=== PATIENT | female | born 1950 | race Caucasian/White ===

== ENCOUNTER 2017-12-15 10:51 | Outpatient (CLI) | payer MEDICARE, BC ==
[2017-12-15 11:32] LABS: #Basophils 0.1 thou/uL (0.0-0.2); #Eosinphils 0.5 thou/uL (0.0-0.7); #Lymphocytes 1.9 thou/uL (1.20-3.40); #Monocytes 0.4 thou/uL (0.11-0.59); #Neutrophils 2.7 thou/uL (1.40-6.50); %Basophils 1.3 % (0.0-1.0); %Eosinophils 8.8 % (0.0-10.0); %Monocytes 6.3 % (0.0-10.0); %Neutrophils 49.6 % (42.0-75.0); Hemoglobin 14.1 g/dL (12.0-16.0); Mean Corpuscular HGB CONC 32.6 g/dL (32.0-36.0); Mean Corpuscular Volume 88.7 fl (81.0-99.0); Mean Platelet Volume 6.4 fL (7.4-10.4); Platelet Count 247 thou/uL (130-400); RBC Distribution Width 11.9 % (11.5-14.5); Red Blood Cell (RBC) Count 4.87 mill/uL (4.20-5.40); White Blood Cell (WBC) Count 5.5 thou/uL (4.8-10.8)
[2017-12-15 12:15] LABS: Anion Gap 12 mmol/L (10-20); BUN (Urea Nitrogen) 11 mg/dL (9.8-20.1); Calc. Creatinine Clearance 0 mL/min (70-130); Calcium 9.7 mg/dL (7.8-10.44); Carbon Dioxide 26 mmol/L (23-31); Chloride 105 mmol/L (98-107); Estimated GFR-MDRD 71; Glucose 93 mg/dL (80-115); Potassium 4.1 mmol/L (3.5-5.1); Sodium 139 mmol/L (136-145)
--- NOTE | 2017-12-16 06:22 | EKG ---
Test Reason : Blood Pressure : / mmHG Vent. Rate : 064 BPM Atrial Rate : 064 BPM P-R Int : 154 ms QRS Dur : 074 ms QT Int : 412 ms P-R-T Axes : 051 035 047 degrees QTc Int : 425 ms Normal sinus rhythm Normal ECG When compared with ECG of 15-APR-2001 14:46, No significant change was found Confirmed by ANDREA MENDOZA ([id number]) on 12/16/2017 6:00:49 AM Referred By: LEIDY Confirmed By:ANDREA MENDOZA
== END 2017-12-15 10:52 | disposition home or self-care (01) ==
LOC: LABBT 10:51
PROVIDERS: ATTEND Orthopaedic Surgery
DX: Z01.818 Encounter for other preprocedural examination (principal); G57.61 Lesion of plantar nerve, right lower limb
CPT/HCPCS: 80048; 85025; 93005; 93010

== ENCOUNTER 2017-12-22 06:11 | Day surgery (SDC) | payer MEDICARE, BC ==
[2017-12-15 11:25] VITALS: BMI 22.3
--- NOTE | 2017-12-21 11:51 | HP ---
HISTORY OF PRESENT ILLNESS: The patient is a 67-year-old female with a 1 year history of pain in her right foot which developed after wearing a certain shoewear. She has pain with walking with tight s hoes. She was seen by a auto job estimator and underwent 2 injections in the webspace between the third and fourth toes with temporary relief, but continues to have pain despite conservative treatment and is i nterfering with day-to-day activities. PAST MEDICAL HISTORY: The patient otherwise is in good health. She has a history of previous cardia c ablation and history for thrombosed hemorrhoid. She has a history of hypertension. CURRENT MEDICATIONS: Include lisinopril and risedronate. ALLERGIES: She has no known allergies. FAMILY HISTORY: Otherwise unremarkable. SOCIAL HISTORY: Otherwise unremarkable. REVIEW OF SYSTEMS: Otherwise unremarkable. PHYSICAL EXAMINATION: GENERAL: Reveals a healthy female. HEENT: Unremarkable. NECK: Supple. CHEST: Clear. HEART: Regular rate and rhythm. ABDOMEN: Soft and nontender. PELVIC/RECTAL/BREAST: Exams are deferred. EXTREMITIES: Painful right foot. There is no swelling. There is point tenderness between the third and fourth metatarsal heads and pain with compression of the metatarsal heads, which reproduces her symptoms. Neurovascular exam is intact. There are palpable distal pulses. Gait is normal. IMAGING DATA: X-rays of the foot are normal. IMPRESSION: Uribe's neuroma third interspace, right foot. PLAN: Surgical excision of Uribe's neuroma, third interspace, right foot. The nature of the surger y, length of recovery, and potential complications such as infection, loss of motion, incomplete reli ef, recurrence, and need for additional treatment or repeat surgery have been discussed in detail.
[2017-12-22] MEDS ORDERED: CEFAZOLIN/Water 2 GM/20 ML SYRINGE ONE (07:10)
[2017-12-22] MEDS ORDERED: Scopolamine 1.5 mg/72 hour Patch ONE (07:10)
[2017-12-22] MEDS ORDERED: Fentanyl 100 MCG/2 ML VIAL ONE (07:14)
[2017-12-22] MEDS ORDERED: Bupivacaine PF 0.5% 30 ML VIAL ONE (07:44)
[2017-12-22] MEDS ORDERED: Metoclopramide HCl 10 MG/2 ML VIAL ONE ×2 (07:50→11:40)
--- NOTE | 2017-12-22 08:46 | OP ---
DATE OF PROCEDURE: 12/22/2017 SURGEON: Joseph Castañeda M.D. ANESTHESIA: General. PREOPERATIVE DIAGNOSIS: Uribe's neuroma third interspace, right foot. POSTOPERATIVE DIAGNOSIS: Uribe's neuroma third interspace, right foot. PROCEDURE: Excision of Uribe's neuroma, third interspace, right foot. NARRATIVE REPORT: After satisfactory anesthesia was induced in supine position, the patient was prep ped and draped in routine manner. Right leg was elevated and exsanguinated with Esmarch bandage, and the tourniquet inflated to 250 mmHg. A 3 cm incision was made in the dorsal foot in the third inter space between the third and fourth metatarsal heads, carried down to subcutaneous tissues. Bleeding points controlled with Bovie cautery. The lamina command and control systems integrator was placed between the third and fourth me tatarsal heads splitting the interspace. Using sharp and blunt dissection, the interspace was develo ped and the transverse metatarsal ligament divided. There was a large interdigital neuroma between t he third and fourth metatarsal heads. The two limbs distally were identified and then sharply cut an d dissection carried proximally. The neuroma then pulled distally and the proximal portion of the ne uroma was sharply divided and allowed to retract proximally. There appeared to be complete excision. The wound was then thoroughly irrigated and then injected and irrigated with 20 mL of 0.5% plain Ma rcaine. The skin was closed with 3-0 nylon. A sterile bulky compressive dressing was applied and th e tourniquet deflated after 18 minutes. The foot promptly pinked up. The patient was placed into a postop shoe. She was awakened, taken to recovery room in stable condition. There were no apparent i ntraoperative complications. The estimated blood loss was negligible. The patient will be discharged home in satisfactory condition. She was instructed on ice, elevation, use of crutches or walker and weightbearing as tolerated in the postop shoe. She was given a prescr iption for Ilfeld 7.5 for pain, 40 tablets. She will be rechecked in my office in approximately 2 wee ks or sooner if there are any problems prior to that time.
[2017-12-22] MEDS ORDERED: Lidocaine 1% PF 5 ML VIAL ONE (11:40)
[2017-12-22] MEDS ORDERED: ePHEDrine/0.9% NaCl/PF SYRINGE 50 mg/10 ml ONE (11:40)
[2017-12-22] MEDS ORDERED: Dexamethasone 20 MG/5 ML VIAL ONE (11:40)
[2017-12-22] MEDS ORDERED: diphenhydrAMINE 50 MG/ML VIAL ONE (11:40)
[2017-12-22] MEDS ORDERED: Ketorolac Tromethamine 30 MG/ML VIAL ONE (11:40)
[2017-12-22] MEDS ORDERED: Ondansetron HCl/PF 4 MG/2 ML Vial ONE (11:40)
[2017-12-22] MEDS ORDERED: PROPOFOL 200 MG/20 ML VIAL ONE (11:40)
== END 2017-12-22 12:15 | disposition home or self-care (01) ==
LOC: SDC 06:11
PROVIDERS: ATTEND Orthopaedic Surgery
PROC: 0YBM0ZZ Excision of Right Foot, Open Approach (ICD-10-PCS; principal; 2017-12-22)
DX: G57.61 Lesion of plantar nerve, right lower limb (principal); I10 Essential (primary) hypertension; M81.0 Age-related osteoporosis without current pathological fracture; I47.1 Supraventricular tachycardia; Z79.83 Long term (current) use of bisphosphonates; Z79.899 Other long term (current) drug therapy
CPT/HCPCS: 28080; 97139; G8978; G8979; G8980; J0131; J1100; J1200; J1885; J2001; J2405; J2704; J2765; J3010; S0020

== ENCOUNTER 2018-07-05 13:44 | Outpatient (CLI) | payer MEDICARE, BC ==
--- NOTE | 2018-07-05 15:41 | ULT ---
THYROID ULTRASOUND: Comparison: 11-06-14 History: Thyroid nodule. Technique: Multiplanar grayscale and color doppler images were obtained in a thyroid ultrasound. FINDINGS: There are solid nodules in both thyroid lobes. The largest nodule is seen in the right lobe and is is oechoic, well circumscribed, and wider than tall. This has a similar appearance compared to the prior examination and measures 2.1 cm in greatest dimension. No suspicious calcifications are seen in the thyroid nodules. The thyroid lobes measure 4.5 and 3.8 cm in length on the right and left, respectively. IMPRESSION: Multinodular thyroid. The largest nodule is TIRADS category 3 lesion. This lesion should be followed up a 1, 3, and 5 years. This lesion has been followed for three years and a repeat follow up examinat ion in two more years should be performed to ensure stability for 5 years. POS: TPC
== END 2018-07-05 13:45 | disposition home or self-care (01) ==
LOC: BICULT 13:44
PROVIDERS: ATTEND Family Medicine
DX: Z12.31 Encounter for screening mammogram for malignant neoplasm of breast (principal); E04.1 Nontoxic single thyroid nodule
CPT/HCPCS: 76536; 77063; 77067

== ENCOUNTER 2019-06-16 09:41 | Outpatient (CLI) | payer MEDICARE, BC ==
--- NOTE | 2019-06-16 11:13 | ULT ---
US Thyroid STANDARD History: E04.2 multinodular goiter Comparison: Thyroid ultrasound 2018 Findings: Real-time grayscale and color evaluation of the thyroid was performed. Similar appearance of the bilateral thyroid nodules without significant interval growth. Isthmus siobhan ures 2 mm in AP dimension. Right lobe measures 4.5 x 2.1 x 1.6 cm and the left lobe measures 3.8 x 1.5 x 0.9 cm. Impression: No significant change in the bilateral thyroid nodules.
--- NOTE | 2019-06-16 11:43 | BD ---
DEXA BONE DENSITY STUDY: Date: 06/16/19 HISTORY: Age-related osteoporosis without current pathologic fracture. COMPARISON: None. FINDINGS: Lumbar Spine: BMD (g/cm2) L1 1.068 T-Score: 0.7 Z-Score: 2.6 L2 1.139 T-Score: 1.0 Z-Score: 3.1 L3 1.202 T-Score: 1.1 Z-Score: 3.2 L4 1.064 T-Score: 0.0 Z-Score: 2.3 L1-L4 1.119 T-Score: 0.7 Z-Score: 2.7 Left Femoral Neck: 0.535 T-Score: -2.8 Z-Score: -1.0 Total Femur: 0.827 T-Score: -0.9 Z-Score: 0.6 WHO Classification: Osteoporosis. IMPRESSION: Osteoporosis with elevated fracture risk. POS: RUFUS
== END 2019-06-16 09:42 | disposition home or self-care (01) ==
LOC: BICMAMMO 09:41
PROVIDERS: ATTEND Family Medicine
DX: M81.0 Age-related osteoporosis without current pathological fracture (principal); E04.2 Nontoxic multinodular goiter
CPT/HCPCS: 76536; 77080

== ENCOUNTER 2019-07-10 07:52 | Outpatient (CLI) | payer MEDICARE, BC ==
--- NOTE | 2019-07-10 09:06 | MMO ---
Bilateral MAMMO Bilat Screen DDI+NACNY. CLINICAL HISTORY: Patient is 68 years old and is seen for screening. The patient has no family history of breast cancer. The patient has no personal history of cancer. The patient has a history of left Excisional Biopsy - benign. VIEWS: The views performed were: bilateral craniocaudal with tomosynthesis and bilateral mediolateral oblique with tomosynthesis. FILMS COMPARED: The present examination has been compared to prior imaging studies performed at [facility] on 09/18/2015 and 07/05/2018, and at [facility] on 10/21/2009. This study has been interpreted with the assistance of computer-aided detection. MAMMOGRAM FINDINGS: There are scattered fibroglandular densities. Benign calcifications are noted bilaterally. There are no suspicious masses, suspicious calcifications, or new areas of architectural distortion. IMPRESSION: THERE IS NO MAMMOGRAPHIC EVIDENCE OF MALIGNANCY. A ROUTINE FOLLOW-UP MAMMOGRAM IN 1 YEAR IS RECOMMENDED. THE RESULTS OF THIS EXAM WERE SENT TO THE PATIENT. ACR BI-RADS Category 2 - Benign finding MAMMOGRAPHY NOTE: 1. A negative mammogram report should not delay a biopsy if a dominant of clinically suspicious mass is present. 2. Approximately 10% to 15% of breast cancers are not detected by mammography. 3. Adenosis and dense breasts may obscure an underlying neoplasm. Reported by: RASHARD MARIA MD Electonically Signed: [id number]
== END 2019-07-10 07:53 | disposition home or self-care (01) ==
LOC: BICMAMMO 07:52
PROVIDERS: ATTEND Family Medicine
DX: Z12.31 Encounter for screening mammogram for malignant neoplasm of breast (principal); Z91.89 Other specified personal risk factors, not elsewhere classified
CPT/HCPCS: 77063; 77067

== ENCOUNTER 2020-01-15 19:44 | Observation (INO) | payer MEDICARE, BC ==
[~2020-01-15 19:44] MED LIST: Iopamidol-370 76% 500 ML 1 ML ONE
[2020-01-15 20:35] LABS: #Basophils 0.1 thou/uL (0.0-0.2); #Eosinphils 0.2 thou/uL (0.0-0.7); #Lymphocytes 1.5 thou/uL (1.20-3.40); #Monocytes 0.4 thou/uL (0.11-0.59); #Neutrophils 4.5 thou/uL (1.40-6.50); %Basophils 0.9 % (0.0-1.0); %Eosinophils 3.3 % (0.0-10.0); %Monocytes 5.3 % (0.0-10.0); %Neutrophils 67.4 % (42.0-75.0); Hemoglobin 12.4 g/dL (12.0-16.0); Mean Corpuscular HGB CONC 33.5 g/dL (32.0-36.0); Mean Corpuscular Volume 89.7 fL (78.0-98.0); Platelet Count 203 thou/uL (130-400); RBC Distribution Width 11.5 % (11.5-14.5); Red Blood Cell (RBC) Count 4.13 mill/uL (4.20-5.40); White Blood Cell (WBC) Count 6.7 thou/uL (4.8-10.8)
[2020-01-15 20:44] LABS: Bilirubin Negative (Negative); Blood, Urine Negative (Negative); Clarity Clear (Clear); Glucose, Urine (Dipstick) Normal (Negative); Leukocyte 75 Leu/uL (Negative); Nitrite Negative (Negative); Protein, Urine (Dipstick) Negative (Neg-Trace); RBC/HPF 0-3 HPF (0-3); Squamous Epithelial None Seen HPF (0-3); Urobilinogen Normal mg/dL (Less than 2)
[2020-01-15 20:45] LABS: Bacteria/HPF 1+ HPF (None Seen)
--- NOTE | 2020-01-15 20:47 | RAD ---
CHEST ONE VIEW: History: Malaise, dizziness. Comparison: None. FINDINGS: No consolidation is evident. Heart size is within normal limits. No pleural effusion is evident. No p neumothorax is demonstrated. NO acute osseous abnormality is noted. IMPRESSION: No definite acute cardiopulmonary abnormality. POS: BH
[2020-01-15 20:55] LABS: ALT (SGPT) 12 U/L (8-55); AST (SGOT) 12 U/L (5-34); Alkaline Phosphatase 50 U/L (40-110); Anion Gap 12 mmol/L (10-20); BUN (Urea Nitrogen) 13 mg/dL (9.8-20.1); Bilirubin, Total 0.3 mg/dL (0.2-1.2); CK (CPK) 82 U/L (29-168); Calc. Creatinine Clearance 0 mL/min (70-130); Calcium 8.6 mg/dL (7.8-10.44); Carbon Dioxide 20 mmol/L (23-31); Chloride 106 mmol/L (98-107); Estimated GFR-MDRD 73; Globulin 2.5 g/dL (2.4-3.5); Glucose 116 mg/dL (80-115); Potassium 3.3 mmol/L (3.5-5.1); Protein, Total 6.5 g/dL (6.0-8.3); Sodium 135 mmol/L (136-145)
[2020-01-15] MEDS ORDERED: Meclizine HCl 25 MG TAB ONE (21:33)
[2020-01-15 23:43] LABS: Magnesium 1.9 mg/dL (1.6-2.6)
[2020-01-15 23:47] LABS: Phosphorus 1.7 mg/dL (2.3-4.7)
[2020-01-15] MEDS ORDERED: Aspirin Chewable 81 MG TAB ONE (23:50)
[2020-01-15] MEDS ORDERED: cefTRIAXone\\ROCEPHIN 1 GM VIAL ONE (23:50)
[2020-01-15] MEDS ORDERED: Potassium Phosphate 15 MMOL in Sodium Chloride 0.9% 250 ML 250 ML IVPB SCH (23:59)
[2020-01-16] MEDS ORDERED: Ondansetron PF 4 MG/2 ML Vial IVP PRN (01:50)
[2020-01-16] MEDS ORDERED: Acetaminophen 325 MG TAB PO PRN (01:50)
[2020-01-16] MEDS ORDERED: Ondansetron ODT 4 MG TAB SL PRN (01:50)
[2020-01-16] MEDS ORDERED: hydrALAZINE 20 MG/ML VIAL SLOW IVP PRN (03:15)
[2020-01-16] MEDS ORDERED: Senokot S 8.6-50 MG TAB PO PRN (03:18)
[2020-01-16] MEDS ORDERED: Calcium Carbonate 500 MG ChewTAB PO PRN (03:18)
[2020-01-16 03:33] VITALS: BMI 22.8
[2020-01-16] MEDS ORDERED: Meclizine HCl 25 MG TAB PO PRN (04:23)
--- NOTE | 2020-01-16 05:24 | HP ---
CHIEF COMPLAINT: Dizziness. HISTORY OF PRESENT ILLNESS: The patient is a 69-year-old female, followed by Dr. Blancas with hypertension, presented to the emergency room with above complaints. Around 7 p.m., the patient had sudden onset of dizziness along with vertigo. She felt generally weak and had spinning sensation. It lasted until she presented to the emergency room. She was unable to ambulate or maintain her balance due to dizziness. The dizziness was worse on movement, especially standing. She denies any weakness or numbness of any of her extremities. No headache, syncope, chest pain, or palpitations reported. The patient has a history of chronic tinnitus, which is recently getting worse. PAST MEDICAL HISTORY: 1. Hypertension. 2. Osteoporosis. 3. Chronic right foot numbness due to neuropathy. 4. History of hemorrhoids. 5. History of tachyarrhythmia, status post ablation. 6. Diverticulosis. PAST SURGICAL HISTORY: 1. Cardiac ablation. 2. Surgery for hemorrhoids. 3. Colonoscopy. ALLERGIES: THE PATIENT DENIES ANY DRUG ALLERGIES. CURRENT HOME MEDICATIONS: The patient is on, 1. Lisinopril 10 mg daily. 2. Alendronate 70 mg every weekly. FAMILY HISTORY: Positive for heart disease. CODE STATUS: Full code. The patient makes her own decision with the help of her spouse, Js Hernandez. REVIEW OF SYSTEMS: All other review of systems was reviewed and was found negative. PHYSICAL EXAMINATION: VITAL SIGNS: In the emergency room, temperature 98.2, pulse rate of 96, respiration of 19, blood pressure of 156/81, O2 saturation 99% on room air. GENERAL: A 69-year-old female in no apparent distress. Dizziness has significantly improved. HEENT: Head, atraumatic and normocephalic. Sclerae are anicteric. Moist mucous membranes. No oral lesion. NECK: Supple. No JVD appreciated. No carotid bruit. LUNGS: Clear to auscultation bilaterally. No wheezing, rales, or rhonchi. HEART: S1 and S2 present. Regular rate and rhythm. No rubs or gallops. ABDOMEN: Soft, nontender. Bowel sounds present. No rebound or guarding. No costovertebral angle tenderness. EXTREMITIES: No edema or calf tenderness. NEUROLOGIC: Grossly nonfocal. Moves all 4 extremities. Power was 5/5 in all extremities. Vodhwa-tu-nffr and ewzl-vs-snsc tests were normal. Reflexes were equivocal. PSYCHIATRIC: Alert, awake, and oriented x3. SKIN: Warm and dry. LYMPH NODES: No palpable lymph nodes in the neck. LABORATORY FINDINGS: CBC showed WBC 6.7 with hemoglobin 12.4, hematocrit 37, and platelet count of 203. Chemistry showed sodium 135, potassium 3.3, chloride 106, bicarb 20, BUN 13, creatinine 0.78, phosphorus 1.7, magnesium 1.9. CT scan of the brain by my review was negative for acute findings. CT angiogram of the head and neck has been done, report pending at this time. Chest x-ray by my review was negative for acute findings. EKG by my review showed sinus rhythm. IMPRESSION: 1. Dizziness/vertigo, rule out posterior cerebrovascular accident. 2. Hypertension. 3. Electrolyte abnormality. The patient has hyponatremia, hypokalemia, and hypophosphatemia. 4. Osteoporosis. 5. Suspected urinary tract infection. 6. History of supraventricular tachycardia, status post ablation in 2000. PLAN: The patient will be monitored in the stroke unit. We will consult Physical Therapy. We will start low-dose aspirin along with statins. Fasting lipid profile will be obtained. Neurology consultation. We will obtain MRI of the brain and echocardiogram. We will replace electrolytes and recheck labs in a.m. Fall precaution. Stroke education. Gentle IV hydration for now. Check orthostatic vitals. Telemetry monitoring. The patient understands the above plan of care. Job ID: [id number]
[2020-01-16] MEDS: Sodium Chloride 0.9% 1,000 ML IV SCH ×2 (06:15→22:34)
[2020-01-16 07:29] LABS: Albumin 4.3 g/dL (3.4-4.8); Anion Gap 12 mmol/L (10-20); BUN (Urea Nitrogen) 11 mg/dL (9.8-20.1); BUN/Creatinine Ratio 15.28; Calc. Creatinine Clearance 69 mL/min (70-130); Calcium 8.8 mg/dL (7.8-10.44); Carbon Dioxide 24 mmol/L (23-31); Cardiac Risk 2.3 (Less than 4.5); Chloride 110 mmol/L (98-107); Cholesterol 201 mg/dl (< 200 Desired); Estimated GFR-MDRD 80; Glucose 96 mg/dL (80-115); HDL Cholesterol 88 mg/dL (>60 Neg Risk); LDL Cholesterol, Calculated 96 mg/dL; Phosphorus 4.5 mg/dL (2.3-4.7); Potassium 4.1 mmol/L (3.5-5.1); Sodium 142 mmol/L (136-145); Triglycerides 85 mg/dL (Less than 150)
[2020-01-16] MEDS: Aspirin 81 mg Enteric Coated Tablet PO SCH (08:43)
[2020-01-16] MEDS: Famotidine 20 MG TAB PO SCH ×2 (08:43→22:18)
[2020-01-16] MEDS: Cefdinir 300 MG CAP PO SCH ×2 (08:43→22:15)
[2020-01-16] MEDS: Heparin 5,000 UNITS/ML VIAL SC SCH ×2 (08:44→22:33)
--- NOTE | 2020-01-16 08:48 | CT ---
NONCONTRAST CT OF THE BRAIN: INDICATION: A 69-year-old female with a history of weakness and dizziness. COMPARISON: None. FINDINGS: There is mild chronic small-vessel white matter ischemic change. There is a remote lacunar infarct v ersus prominent perivascular space involving the inferior aspect of the left globus pallidus. The se ptum pellucidum and third ventricle are midline. No hydrocephalus is evident. No intracranial hemor rhage is noted. There is mild mucosal thickening within the sphenoid sinus and ethmoid air cells. M astoid air cells are clear. IMPRESSION: 1. No acute intracranial abnormality. 2. Mild chronic small-vessel white matter ischemic change. 3. Mild paranasal disease. POS: BH
--- NOTE | 2020-01-16 12:16 | CT ---
CTA OF THE HEAD AND NECK UTILIZING IV CONTRAST AND 3D REFORMATTED IMAGING: INDICATION: A 69-year-old female with weakness and dizziness. COMPARISON: CT of the brain without contrast dated 01/15/2020. FINDINGS: No hemodynamically significant stenosis, occlusion, or aneurysmal formation is demonstrated. The lef t vertebral artery is dominant. There is a origin to the right OYSTER FISHERMAN. No abnormal enhancement i s demonstrated within the brain. There is mild paranasal sinus disease. Thyroid nodules are present within the thyroid gland and are better assessed on a thyroid ultrasound dated 06/16/2019. No enlar ged lymph nodes are evident. No definite acute osseous abnormality is demonstrated. IMPRESSION: No hemodynamically significant stenosis, occlusion, or aneurysmal formation demonstrated. POS: BH
--- NOTE | 2020-01-16 13:17 | CON ---
DATE OF CONSULTATION: 01/16/2020 REASON FOR CONSULTATION: Dizziness, rule out posterior circulation TIA. HISTORY OF PRESENT ILLNESS: Ms. Hernandez is a 69-year-old female with history significant for hypertension, now presented to with acute onset dizziness. According to the patient, at around 7 p.m., she had sudden onset of dizziness with vertigo. She also felt extremely weak with a feeling of room spinning in front of her eyes. She was unable to ambulate or maintain her balance, so it was decided to bring her to the emergency room for further evaluation. The patient denies any focal weakness, focal paresthesias, nausea, vomiting, headache, chest pain, or palpitation, but she does have history of chronic tinnitus. REVIEW OF SYSTEMS: All other systems were reviewed and were found negative. PAST MEDICAL HISTORY: Hypertension; hemorrhoids; tachyarrhythmia, status post ablation; diverticulitis; and osteoporosis. PAST SURGICAL HISTORY: Cardiac ablation, surgery for hemorrhoids, and colonoscopy. ALLERGIES: NO KNOWN DRUG ALLERGIES. HOME MEDICATIONS: Lisinopril 10 mg daily and alendronate 70 mg weekly. FAMILY HISTORY: Family history is significant for coronary artery disease. ALLERGIES: NO KNOWN DRUG ALLERGIES. PHYSICAL EXAMINATION: VITAL SIGNS: Blood pressure 160/80, pulse 88, and respiratory rate 18. GENERAL: A 69-year-old female, in no acute distress. HEENT: Normocephalic and atraumatic. NECK: Supple. LUNGS: Clear. HEART: Regular rate and rhythm. ABDOMEN: Soft. EXTREMITIES: No clubbing or edema. NEUROLOGIC: Mental status; the patient is alert and oriented to person, place, and time. Speech clear. Motor, muscle tone and bulk are normal. Moving all four extremities equally and symmetrically. Cranial nerves 2 through 12 intact. Sensory intact. Cerebellar, afnlzw-ic-lrei testing intact. Reflexes 2+ bilaterally. Gait within normal limits. DIAGNOSTIC STUDIES: Data reviewed. I reviewed the labs, which were essentially unremarkable. I also reviewed the CT scan, which was negative. CT angiogram of the head and neck did not reveal any acute intracranial stenosis. EKG showed normal sinus rhythm. ASSESSMENT AND PLAN: Ms. Hafsa Hernandez is consulted for an acute onset dizziness/vertigo to rule out posterior circulation transient ischemic attack versus stroke. She does have risk factors for stroke. Recommend MRI of brain to rule out acute intracranial pathology. Recommend echocardiogram to rule out cardioembolic source. Neuro checks every 4 hours. Continue aspirin and statin for secondary stroke prevention. Neuro checks every 4 hours. Continue home medications. PT/OT/speech. Continue medical management per primary team. We will continue to follow. Thank you for the consult. Job ID: [id number] MTDD
--- NOTE | 2020-01-16 13:41 | MRI ---
MRI OF THE BRAIN WITHOUT CONTRAST: 01/16/20 HISTORY: Syncope with generalized weakness. FINDINGS: Correlation is made with the previous day's CT scan. No restricted diffusion is seen. Multiple foci of T2 prolongation is seen in the periventricular whi te matter consistent with chronic small vessel ischemic disease. An old lacunar infarct versus promin ent prevascular space is seen in the left basal ganglia. No evidence of acute infarct, hemorrhage, mi dline shift or abnormal extra-axial fluid collections are seen. The ventricular size is appropriate a nd the basilar cisterns patent. There is mucosal disease in the paranasal sinuses. IMPRESSION: 1. No evidence of acute intracranial process. 2. Chronic small vessel ischemic disease. POS: LINA
--- NOTE | 2020-01-16 19:04 | PDOC.EVN ---
Event Note - Event Note Event Note: 1500: Patient seen and examined at this time. Awaiting ECHO and CTA results currently. Updated patient on other test results. Patient examination completed , only complaint of some slight dizziness when watching tv. Neurology following along with case and awaiting results.
[2020-01-16] MEDS ORDERED: Atorvastatin Calcium 40 MG TAB PO SCH (21:00)
[2020-01-16] MEDS: Acetaminophen 325 MG TAB PO PRN (22:13)
[2020-01-17 05:12] LABS: #Eosinphils 0.4 thou/uL (0.0-0.7); #Lymphocytes 1.9 thou/uL (1.20-3.40); #Monocytes 0.3 thou/uL (0.11-0.59); #Neutrophils 1.6 thou/uL (1.40-6.50); %Basophils 0.9 % (0.0-1.0); %Eosinophils 10.1 % (0.0-10.0); %Lymphocytes 44.8 % (21.0-51.0); %Monocytes 6.6 % (0.0-10.0); %Neutrophils 37.5 % (42.0-75.0); Hemoglobin 12.2 g/dL (12.0-16.0); Mean Corpuscular HGB CONC 33.9 g/dL (32.0-36.0); Mean Corpuscular Volume 91.3 fL (78.0-98.0); Platelet Count 178 thou/uL (130-400); RBC Distribution Width 11.8 % (11.5-14.5); Red Blood Cell (RBC) Count 3.94 mill/uL (4.20-5.40); White Blood Cell (WBC) Count 4.2 thou/uL (4.8-10.8)
[2020-01-17] MEDS: Acetaminophen 325 MG TAB PO PRN (06:11)
[2020-01-17 06:21] LABS: Albumin 3.6 g/dL (3.4-4.8); Anion Gap 9 mmol/L (10-20); BUN (Urea Nitrogen) 11 mg/dL (9.8-20.1); BUN/Creatinine Ratio 15.49; Calc. Creatinine Clearance 70 mL/min (70-130); Calcium 8.1 mg/dL (7.8-10.44); Carbon Dioxide 23 mmol/L (23-31); Chloride 111 mmol/L (98-107); Estimated GFR-MDRD 81; Glucose 92 mg/dL (80-115); Phosphorus 3.2 mg/dL (2.3-4.7); Potassium 3.7 mmol/L (3.5-5.1); Sodium 139 mmol/L (136-145)
[2020-01-17] MEDS: Cefdinir 300 MG CAP PO SCH (08:59)
[2020-01-17] MEDS: Heparin 5,000 UNITS/ML VIAL SC SCH (08:59)
[2020-01-17] MEDS: Famotidine 20 MG TAB PO SCH (08:59)
[2020-01-17] MEDS: Aspirin 81 mg Enteric Coated Tablet PO SCH (08:59)
[2020-01-17 11:50] VITALS: BP 143/67; TEMP 98.3
--- NOTE | 2020-01-17 13:01 | PDOC.HOSPP ---
- Subjective Encounter Date: 01/17/20 Encounter Time: 12:58 Subjective: Ms. Hernandez was seen today in follow-up of TIA. She says the dizziness and ataxia has completely resolved. She does not have any enw complaints. - Objective Vital Signs & Weight: Vital Signs (12 hours) Temp Pulse Resp BP BP Pulse Ox 01/17/20 11:49 98.3 F 69 16 143/67 H 98 01/17/20 08:56 98.2 F 69 14 145/70 H 97 01/17/20 06:32 99 01/17/20 03:28 97.9 F 64 18 125/71 99 Weight Weight 133 lb 6.4 oz I&O: 01/16/20 01/17/20 01/18/20 06:59 06:59 06:59 Intake Total 435 1240 300 Balance 435 1240 300 Result Diagrams: 01/17/20 05:00 01/17/20 05:00 Hospitalist ROS - Medication Medications: Active Medications Generic Name Dose Route Start Last Admin Trade Name Freq PRN Reason Stop Dose Admin Acetaminophen 650 mg 01/16/20 21:35 01/17/20 06:11 Tylenol PO 650 mg Q4H PRN Administration Headache/Fever or Pain Aspirin 81 mg 01/16/20 09:00 01/17/20 08:59 Ecotrin PO 81 mg DAILY JULIANNE Administration Atorvastatin Calcium 40 mg 01/16/20 21:00 01/16/20 22:16 Lipitor PO 40 mg HS JULIANNE Administration Cefdinir 300 mg 01/16/20 09:00 01/17/20 08:59 Omnicef PO 300 mg BID JULIANNE Administration Famotidine 20 mg 01/16/20 09:00 01/17/20 08:59 Pepcid PO 20 mg BID JULIANNE Administration Heparin Sodium (Porcine) 5,000 units 01/16/20 09:00 01/17/20 08:59 Heparin SC 5,000 units Q12HR JULIANNE Administration - Exam Eye: PERRL Heart: RRR, no murmur, no gallops, no rubs, normal peripheral pulses Respiratory: CTAB, no wheezes, no rales Gastrointestinal: soft, non-tender, non-distended, normal bowel sounds, no palpable masses, no hepatomegaly Extremities: no cyanosis, no edema Hosp A/P (1) TIA (transient ischemic attack) Code(s): G45.9 - TRANSIENT CEREBRAL ISCHEMIC ATTACK, UNSPECIFIED Status: Acute (2) Hypertension Code(s): I10 - ESSENTIAL (PRIMARY) HYPERTENSION Status: Chronic (3) Dyslipidemia Code(s): E78.5 - HYPERLIPIDEMIA, UNSPECIFIED Status: Chronic - Plan * TIA- MRI was negative for CVA * HTN- blood pressure is stable * Dyslipidemia- LDL is mildly elevated- will continue with Lipitor * All questions answered and Anticipate discharge home today
--- NOTE | 2020-01-17 15:29 | PDOC.HOSPP ---
- Subjective Encounter Date: 01/17/20 Subjective: NEUROLOGY PROGRESS NOTE No acute events overnight. Patient stable and dizziness resolved. - Objective Vital Signs & Weight: Vital Signs (12 hours) Temp Pulse Resp BP BP Pulse Ox 01/17/20 11:49 98.3 F 69 16 143/67 H 98 01/17/20 08:56 98.2 F 69 14 145/70 H 97 01/17/20 06:32 99 Weight Weight 133 lb 6.4 oz I&O: 01/16/20 01/17/20 01/18/20 06:59 06:59 06:59 Intake Total 435 1240 598 Balance 435 1240 598 Result Diagrams: 01/17/20 05:00 01/17/20 05:00 Radiology Reviewed by me: Yes EKG Reviewed by me: Yes Hospitalist ROS - Review of Systems Constitutional: denies: fever, chills, sweats, weakness, malaise, other ENT: denies: ear pain, ear discharge, nose pain, nose discharge, nose congestion , mouth pain, mouth swelling, throat pain, throat swelling, other Cardiovascular: reports: light headedness Gastrointestinal: denies: nausea, vomiting, abdominal pain, diarrhea, constipation, melena, hematochezia, other Genitourinary: denies: dysuria, frequency, incontinence, hematuria, retention, other Musculoskeletal: denies: neck pain, shoulder pain, arm pain, back pain, hand pain, leg pain, foot pain, other Neurological: denies: weakness, numbness, incoordination, change in speech, confusion, seizures, other - Medication Medications: Active Medications Generic Name Dose Route Start Last Admin Trade Name Marcelo PRN Reason Stop Dose Admin Acetaminophen 650 mg 01/16/20 21:35 01/17/20 06:11 Tylenol PO 650 mg Q4H PRN Administration Headache/Fever or Pain Aspirin 81 mg 01/16/20 09:00 01/17/20 08:59 Ecotrin PO 81 mg DAILY JULIANNE Administration Atorvastatin Calcium 40 mg 01/16/20 21:00 01/16/20 22:16 Lipitor PO 40 mg HS JULIANNE Administration Cefdinir 300 mg 01/16/20 09:00 01/17/20 08:59 Omnicef PO 300 mg BID JULIANNE Administration Famotidine 20 mg 01/16/20 09:00 01/17/20 08:59 Pepcid PO 20 mg BID JULIANNE Administration Heparin Sodium (Porcine) 5,000 units 01/16/20 09:00 01/17/20 08:59 Heparin SC 5,000 units Q12HR JULIANNE Administration - Exam General Appearance: awake alert Eye: PERRL, anicteric sclera ENT: normocephalic atraumatic, no oropharyngeal lesions, moist mucosa Neck: supple Heart: RRR Respiratory: CTAB Gastrointestinal: soft, non-tender Extremities: no cyanosis, no clubbing, no edema Skin: normal turgor, no lesions, no rashes Neurological: cranial nerve grossly intact, normal sensation to touch, no weakness, no focal deficits Musculoskeletal: normal tone, normal strength, no muscle wasting Psychiatric: normal affect, normal behavior, A&O x 3, oriented to person, oriented to place, oriented to time Hosp A/P (1) TIA (transient ischemic attack) Code(s): G45.9 - TRANSIENT CEREBRAL ISCHEMIC ATTACK, UNSPECIFIED Status: Acute (2) Dyslipidemia Code(s): E78.5 - HYPERLIPIDEMIA, UNSPECIFIED Status: Chronic (3) Hypertension Code(s): I10 - ESSENTIAL (PRIMARY) HYPERTENSION Status: Chronic - Plan 69 year old with TIA MRI Brain reviewed which was negative Carotid dopplers negative. Echocardiogram did not show any thrombus or PFO. Continue aspirin and statin for secondary stroke prevention. Continue home medications. Continue medical management per primary team. PT/OT/Speech CTA of neck and head unremarkable. Patient stable from neurology perspective.
--- NOTE | 2020-01-18 09:33 | DIS ---
DATE OF ADMISSION: 01/15/2020 DATE OF DISCHARGE: 01/17/2020 DISCHARGE DISPOSITION AND FOLLOWUP: Patient was discharged to home. The patient was seen and examined on the day of her discharge. Denies any new complaints. She is to follow up with her primary care physician within two weeks. INPATIENT CONSULTS: Neurology. CLINICAL COURSE: The patient is a very pleasant 69-year-old female with history of hypertension, who presented to the ER for dizziness. She was unable to ambulate or maintain her balance due to the dizziness that was worse on movement, especially when standing. Denies any weakness or numbness of any of her extremities. No headache, syncope, chest pain, or palpitations otherwise reported. She does have a history of chronic tinnitus, which has recently gotten worse. She was monitored on the Stroke Unit. She was placed on a statin and aspirin and also started on Omnicef for a suspected UTI. She was seen by the stroke team while here, and during her stay , her symptoms resolved. Today, she was cleared to go home by Neurology. She was advised to be compliant on her medications and to follow up with her primary care physician. Her urine culture resulted with no growth and antibiotics were discontinued prior to discharge. FINAL DIAGNOSES: 1. Transient ischemic attack. 2. Dyslipidemia. 3. Hypertension. DISCHARGE MEDICATIONS: New prescriptions: 1. Aspirin 81 mg p.o. daily. 2. Atorvastatin 40 mg p.o. h.s. To continue her prescriptions of: 1. Fosamax 70 mg p.o. q.7 days. 2. Lisinopril 10 mg p.o. daily. DISCHARGE INSTRUCTIONS: The patient was educated over signs and symptoms of TIA and also educated over her new medication. She was encouraged to follow up with her PCP, Dr. Blancas, within the next two weeks. TIME SPENT: Total time coordinating the discharge of the patient was 25 minutes. Job ID: [id number] MTDD
--- NOTE | 2020-01-20 11:54 | EKG ---
Test Reason : Blood Pressure : / mmHG Vent. Rate : 093 BPM Atrial Rate : 093 BPM P-R Int : 200 ms QRS Dur : 076 ms QT Int : 378 ms P-R-T Axes : 067 011 028 degrees QTc Int : 469 ms Normal sinus rhythm Nonspecific ST abnormality Abnormal ECG Confirmed by DUTCH SIMENTAL ([id number]), makeup editor ALCIRA MANSFIELD ([id number] on 01/20/2020 11:54:41 AM Referred By: Confirmed By:DUTCH Matthews
== END 2020-01-17 16:14 | disposition home or self-care (01) ==
LOC: ERS 19:44 → 2SE 23:40
PROVIDERS: ADMIT Internal Medicine; ATTEND Internal Medicine
DX: G45.9 Transient cerebral ischemic attack, unspecified (principal); E78.5 Hyperlipidemia, unspecified; I10 Essential (primary) hypertension; E87.1 Hypo-osmolality and hyponatremia; E87.6 Hypokalemia; E83.39 Other disorders of phosphorus metabolism; G62.9 Polyneuropathy, unspecified; M81.0 Age-related osteoporosis without current pathological fracture; Z79.899 Other long term (current) drug therapy
CPT/HCPCS: 36415; 70450; 70496; 70498; 70551; 71045; 80053; 80061; 80069; 81003; 81015; 82550; 82607; 82746; 83735; 84100; 84484; 85025; 87086; 93005; 93306; 96361; 96365; 96372; 96375; G0378; J0696; J1644; J7050; Q9967

== ENCOUNTER 2021-08-13 09:58 | Outpatient (CLI) | payer MEDICARE, BC | END 2021-08-13 09:59 | disposition home or self-care (01) | LOC: BICMAMMO 09:58 | PROVIDERS: ATTEND Family Medicine | DX: Z12.31 Encounter for screening mammogram for malignant neoplasm of breast (principal); Z13.820 Encounter for screening for osteoporosis; M81.0 Age-related osteoporosis without current pathological fracture; Z91.89 Other specified personal risk factors, not elsewhere classified | CPT/HCPCS: 77063; 77067; 77080 ==

== ENCOUNTER 2022-02-24 15:47 | Outpatient (CLI) | payer MEDICARE, BC | END 2022-02-24 15:48 | disposition home or self-care (01) | LOC: ULT 15:47 | PROVIDERS: ATTEND Family Medicine | DX: E04.2 Nontoxic multinodular goiter (principal) | CPT/HCPCS: 76536 ==

== ENCOUNTER 2022-03-18 12:31 | Day surgery (SDC) | payer MEDICARE, BC ==
[2022-03-16 13:05] VITALS: BMI 21.5
[2022-03-18] MEDS ORDERED: Lidocaine 1% PF 5 ML VIAL ONE (12:48)
[2022-03-18] MEDS ORDERED: Sodium Bicarbonate 2.5 MEQ/5 ML VIAL ONE (12:48)
[2022-03-18 14:22] VITALS: BP 142/70; TEMP 98.3
== END 2022-03-18 14:00 | disposition home or self-care (01) ==
LOC: ULT 12:31
PROVIDERS: ATTEND Family Medicine
PROC: 0G9H3ZX Drainage of Right Thyroid Gland Lobe, Percutaneous Approach, Diagnostic (ICD-10-PCS; principal; 2022-03-18)
DX: E04.2 Nontoxic multinodular goiter (principal); I10 Essential (primary) hypertension; M81.0 Age-related osteoporosis without current pathological fracture; Z86.73 Personal history of transient ischemic attack (TIA), and cerebral infarction without residual deficits; Z79.82 Long term (current) use of aspirin; Z79.899 Other long term (current) drug therapy
CPT/HCPCS: 10005; 88173

== ENCOUNTER 2022-11-13 14:30 | Outpatient (CLI) | payer MEDICARE, BC | END 2022-11-13 14:31 | disposition home or self-care (01) | LOC: ULT 14:30 | PROVIDERS: ATTEND Family Medicine | DX: E04.2 Nontoxic multinodular goiter (principal) | CPT/HCPCS: 76536 ==

== ENCOUNTER 2023-10-29 13:54 | Outpatient (CLI) | payer MEDICARE, BC | END 2023-10-29 13:55 | disposition home or self-care (01) | LOC: BICULT 13:54 | PROVIDERS: ATTEND Family Medicine | DX: E04.2 Nontoxic multinodular goiter (principal) | CPT/HCPCS: 76536 ==

== ENCOUNTER 2024-02-04 09:19 | Outpatient (CLI) | payer MEDICARE, BC | END 2024-02-04 09:20 | disposition home or self-care (01) | LOC: BICMAMMO 09:19 | PROVIDERS: ATTEND Family Medicine | DX: Z12.31 Encounter for screening mammogram for malignant neoplasm of breast (principal); Z13.820 Encounter for screening for osteoporosis; Z78.0 Asymptomatic menopausal state; M81.0 Age-related osteoporosis without current pathological fracture; Z91.89 Other specified personal risk factors, not elsewhere classified | CPT/HCPCS: 77063; 77067; 77080 ==

== ENCOUNTER 2024-02-07 20:24 | Emergency (ER) | payer MEDICARE, BC ==
[2024-02-07] MEDS ORDERED: Proparacaine 0.5% Opth 15 ML BOT ONE (20:59)
[2024-02-07] MEDS ORDERED: Fluorescein Opthalmic Strip ONE (20:59)
[2024-02-07] MEDS ORDERED: Erythromycin Base 0.5% Oint 1 GM TUBE ONE (21:25)
== END 2024-02-07 21:49 | disposition home or self-care (01) ==
LOC: ERS 20:24
DX: S05.01XA Injury of conjunctiva and corneal abrasion without foreign body, right eye, initial encounter (principal); I10 Essential (primary) hypertension; W22.8XXA Striking against or struck by other objects, initial encounter; Y93.E9 Activity, other interior property and clothing maintenance
CPT/HCPCS: 99283

== ENCOUNTER 2024-03-27 11:03 | Emergency (ER) | payer MEDICARE, BC ==
[2024-03-27] MEDS ORDERED: HYDROcodone/Acetaminophen 5/325 mg Tablet ONE (12:29)
== END 2024-03-27 13:10 | disposition home or self-care (01) ==
LOC: ERS 11:03
DX: S92.191A Other fracture of right talus, initial encounter for closed fracture (principal); I10 Essential (primary) hypertension; X50.1XXA Overexertion from prolonged static or awkward postures, initial encounter; Y93.89 Activity, other specified; Z79.82 Long term (current) use of aspirin; Z79.899 Other long term (current) drug therapy